=== PATIENT | female | born 1995 | race Caucasian/White ===

== ENCOUNTER 2024-05-31 15:13 | Outpatient (CLI) | payer BC, SELFPAY ==
--- OUTSIDE RECORDS SUMMARY | 2024-05-31 15:39 | XMS_ITS | Referral Summary ---
Author Organization [facility] Virtual Care Address [address] [place] [phone] Phone Care Team Providers Care Director Oncology Name Role Phone Van Garcia MD Primary Care Provider [phone] Allergies No known active allergies Medications No known medications Active Problems Problem Noted Date Diagnosed Date Acute pain of right knee 11/17/2023 Assessment & Plan (11/17/2023 11:24 AM CDT): Impression: Patient does complain of pain however is isolated to her right knee and foot. No symptoms of claudication. Patient also complains of symptoms suggestive of neurogenic pain. 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 Plan: Recommend patient to follow-up with primary care provider for worsening symptoms. Asymptomatic spider veins of both lower extremit ies 11/16/2023 Assessment & Plan (11/17/2023 11:22 AM CDT): Impression: Patient has spider veins to the right medial thigh. Patient underwent a venous reflux which did not show significant reflux to bilateral lower extremities. Plan: Recommend patient compression therapy as she is on her feet for prolong period of time. -patient to follow-up on an as-needed basis. Immunizations Name Administration Dates Next Due Influenza, Unspecified 04/29/2021(Deferr ed: Patient Refused),05/02/2020(Deferred: Patient Refused) Social History Tobacco Use Types Packs/Day Years Used Date Smoking Tobacco: Never Tobacco Cessation:Counseling Given: Not Answered AUDIT-C Answer Date Recorded Q1: How often do you have a drink containing alc ohol? Monthly or less 10/19/2023 Q2: How many drinks containi ng alcohol do you have on a typical day when you are drinking? 1 or 2 10/19/2023 Frequency of Binge Drinking Not on file 09/30 PHQ-2 Answer Date Recorded PHQ-2 Total Score (If total score is 3 or more points, staff should administer the PHQ-9) 0 10/19/2023 Comments Unknown Sex and Gender Information Value Date Recorded Sex Assigned at Not on file Legal Sex Female 10:02 AM VIDEO PRODUCTION SPECIALIST Gender Identity Female 03/10/2021 10:16 AM VIDEO PRODUCTION SPECIALIST Sexual Orientation Choose not to disclose 2020 10:16 AM VIDEO PRODUCTION SPECIALIST Last Filed Vital Signs Vital Sign Reading Time Taken Comments Blood Pressure 119/76 11/16/2023 10:08 AM CDT Pulse 66 11/16/2023 10:08 AM CDT Temperature 37.1 ??C (98.7 ??F) 10/19/2023 1:58 PM CD T Respiratory Rate 18 10/19/2023 1:58 PM CDT Oxygen Saturation 100% 11/16/2023 10:08 AM CDT Inhaled Oxygen Concentration - - Weight 61.1 kg (134 lb 9.6 oz) 10/19/2023 1:58 P M CDT Height 165.1 cm (5' 5 ) 10/19/2023 1:58 PM CDT Body Mass Index 22.4 10/19/2023 1:58 PM CDT Plan of Treatment Not on file Insurance [place] [address] [employer] [facility] H[facility]/PPO Address: [facility] [address] [place] [address] Care Teams Director Oncology Relationship Specialty Start Date End Date Van Garcia MD PCP - General Family Medicine 04/29/21
--- OUTSIDE RECORDS SUMMARY | 2024-05-31 15:39 | XMS_ITS | Clinical Summary ---
Author Organization [facility] Virtual Care Address [address] [place] [phone] Phone Care Team Providers Care Trimming Operator Name Role Phone Van Garcia MD Primary Care Provider [phone] Allergies No known active allergies Medications No [...] Unspecified 04/29/2021(Deferr ed: Patient Refused),05/02/2020(Deferred: Patient Refused) Family History Medical History Relation Name Comments No Known Problems Brother No Known Problems Father Hypertension Mother No Known Problems Sister Relation Name Status Comments Brother Alive Father Alive Mother Alive Sister Alive Social History Tobacco Use Types Packs/Day Years [...] on file Legal Sex Female 10:02 AM SCIENCE MANAGER Gender Identity Female 03/10/2021 10:16 AM SCIENCE MANAGER Sexual Orientation Choose not to disclose 2020 10:16 AM SCIENCE MANAGER Obstetrics History Last Filed Vital Signs Vital Sign Reading [...] 10/19/2023 1:58 PM CDT Plan of Treatment Health Maintenance Due Date Last Done Comments Cervical Cancer Screening 1996 Hepatitis C Screening 1996 DTaP/Tdap/Td Vaccine (1 - Tdap) 2007 Varicella Vaccines (1 of 2 - 13+ 2-dose series) 2009 Hepatitis B Screening 2014 Regular Well Visit/Exam 18-64 04/29/2022 04/29/2021 Depression Screening 10/18/2024 10/19/2023, 04/29/2021 HPV Vaccines Aged Out No longer eligi ble based on patient's age to complete this topic Influenza Vaccine Discontinued Pneumococcal vaccine <65 Aged Out No longer eligible based on patient's age to complete this topic Insurance [address] [place], [place] [address] [place] [address] [place] [address] [facility] HMO/PPO Address: [address] [address] [place] [address] Care Teams Trimming Operator Relationship Specialty Start Date End Date Van Garcia MD PCP - General Family Medicine 04/29/21
[2024-05-31 18:47] LABS: Hematocrit 36.8 % (37.0-47.0); Hemoglobin 12.4 g/dL (12.0-15.0); Mean Corpuscular HGB Conc 33.7 g/dl (32-36); Mean Corpuscular Hemoglobin 29.7 pg (26-34); Mean Corpuscular Volume 88.2 fl (80-100); Mean Platelet Volume 9.1 fl (7.4-10.4); Platelet Count Result 328 k/mm3 (150-375); Red Blood Count 4.17 M/mm3 (4.2-5.4); Red Cell Distribution Width 11.8 % (11.5-14.5); White Blood Count 10.5 K/mm3 (4.5-10.0)
[2024-05-31 19:43] LABS: HIV 1/2 Ab P24 Ag Result Negative (Negative)
[2024-05-31 19:52] LABS: Hepatitis B Surface Antigen Negative (Negative)
[2024-05-31 20:25] LABS: Rubella IgG Antibody > 110.0 IU/ML
[2024-06-01 13:22] LABS: Rapid Plasma Reagin Non-Reactive (NonReactive)
[2024-06-02 04:39] LABS: CMV IgG Antibody <0.60 U/mL; Varicella IgG Antibody 7.97 S/CO
== END 2024-05-31 15:14 | disposition home or self-care (01) ==
LOC: ANHGOSHLAB 15:14
PROVIDERS: PCP Pediatrics; Visit Provider Student in an Organized Health Care Education/Training Program
DX: N91.2 Amenorrhea, unspecified (principal); Z3A.08 8 weeks gestation of pregnancy
CPT/HCPCS: 36415; 84702; 85027; 86592; 86644; 86703; 86747; 86762; 86787; 86850; 86900; 86901; 87086; 87340; G0432

== ENCOUNTER 2024-05-31 15:28 | Outpatient (CLI) | payer BC, SELFPAY ==
--- NOTE | ~2024-05-31 | US_ITS ---
EXAMINATION: US OB <=14 wk fetus w TV DATE: 05/31/2024 16:02 SPLITTER MACHINE INDICATION: Dating COMPARISON: 02/01/2024 TECHNIQUE: Real-time transabdominal obstetric ultrasound. FINDINGS: 1 para 0 Last menstrual period is given as 04/07/2024 The uterus measures 10.1 x 8.4 x 5.1 cm. A gestational sac is identified within the uterus, to the right of midline. A pole is identified, with a crown-rump length that measures 1.73 cm, corresponding to an appro ximate gestational age of 8 weeks and 1 days. cardiac activity is identified at a rate of 169 bpm. Despite prolonged interrogation, the right ovary was not visualized. The left ovary measures 2.8 x 1.3 x 2.6 cm. Estimated date of delivery by ultrasound is 01/09/2025 IMPRESSION: Single intrauterine gestation with an approximate gestational age of 8 weeks and 1 days, with c ardiac activity identified. Reviewed, dictated and finalized at location A. TTER MACHINE IMPRESSION: Single intrauterine gestation with an approximate gestational age of 8 weeks an d 1 days, with cardiac activity identified.
== END 2024-05-31 15:29 | disposition home or self-care (01) ==
PROVIDERS: PCP Student in an Organized Health Care Education/Training Program; Visit Provider Student in an Organized Health Care Education/Training Program
DX: Z34.91 Encounter for supervision of normal pregnancy, unspecified, first trimester (principal); Z3A.08 8 weeks gestation of pregnancy
CPT/HCPCS: 76801; 76817

== ENCOUNTER 2024-11-03 08:10 | Outpatient (CLI) | payer OTHER, SELFPAY ==
--- OUTSIDE RECORDS SUMMARY | 2024-11-03 08:18 | XMS_ITS | Referral Summary ---
Author Organization [facility] Virtual Care Address [address] [place] [phone] Phone Care Team Providers Care Education Associate Name Role Phone Van Garcia MD Primary Care Provider [phone] Allergies No known active allergies Medications No [...] to follow-up on an as-needed basis. Immunizations Immunization Administration Dates Next Due Influenza, Unspecified 04/29/2021(Deferr [...] on file Legal Sex Female 10:02 AM PICKING TECH Gender Identity Female 03/10/2021 10:16 AM PICKING TECH Sexual Orientation Choose not to disclose 2020 10:16 AM PICKING TECH Last Filed Vital Signs Vital Sign Reading Time Taken Comments Blood Pressure 119/76 11/16/2023 10:08 AM CDT Pulse 66 11/16/2023 10:08 AM CDT Temperature 37.1 C (98.7 F) 10/19/2023 1:58 PM CDT Respiratory Rate 18 10/19/2023 1:58 PM CDT Oxygen Saturation 100% 11/16/2023 10:08 AM CDT Inhaled Oxygen Concentration - - Weight 61.1 kg (134 lb 9.6 oz) 10/19/2023 1:58 P M CDT Height 165.1 cm (5' 5) 10/19/2023 1:58 PM CDT Body Mass Index 22.4 10/19/2023 1:58 PM CDT Plan of Treatment Not on [place] [address] [employer] Care Teams Education Associate Relationship Specialty Start Date End Date Van Garcia MD PCP - General Family Medicine 04/29/21
--- OUTSIDE RECORDS SUMMARY | 2024-11-03 08:18 | XMS_ITS | Clinical Summary ---
Author Organization [facility] Virtual Care Address [address] [place] [phone] Phone Care Team Providers Care Medical Engineer Name Role Phone Van Garcia MD Primary Care Provider [phone] Allergies No known active allergies Medications No [...] on file Legal Sex Female 10:02 AM DYE CAN OPERATOR Gender Identity Female 03/10/2021 10:16 AM DYE CAN OPERATOR Sexual Orientation Choose not to disclose 2020 10:16 AM DYE CAN OPERATOR Obstetrics History Last Filed Vital Signs Vital [...] patient's age to complete this topic Insurance [address] [place], [place] [address] OPEN ACCESS [facility] Care Teams Medical Engineer Relationship Specialty Start Date End Date Van Garcia MD PCP - General Family Medicine 04/29/21
[2024-11-03 09:54] LABS: Hematocrit 33.9 % (37.0-47.0); Hemoglobin 11.2 g/dL (12.0-15.0); Immature Granulocyte Percent A 0.8 % (0-0.5); Lymphocytes Absolute Auto 1.08 K/mm3 (0.9-3.2); Mean Corpuscular HGB Conc 33.0 g/dl (32-36); Mean Corpuscular Hemoglobin 30.7 pg (26-34); Mean Corpuscular Volume 92.9 fl (80-100); Nucleated Red Blood Cells Absolute Auto 0.000 K/mm3 (0.0-0.012); Nucleated Red Blood Cells Perc 0.0 % (0.0-0.2); Platelet Count Result 249 k/mm3 (150-375); Red Blood Count 3.65 M/mm3 (4.2-5.4); White Blood Count 9.1 K/mm3 (4.5-10.0)
[2024-11-03 10:05] LABS: Glucose 1 Hour PP 50gm Dose 157 mg/dL
[2024-11-03 10:36] LABS: Syphilis IgG/IgM Antibody Non-Reactive (Nonreactive)
[2024-11-03 10:46] LABS: HIV 1/2 Ab P24 Ag Result Negative (Negative)
[2024-11-03] MEDS: RHO(D) IMMUNE GLOBULIN 300 MCG/2 ML SYRINGE IM (15:09)
== END 2024-11-03 08:11 | disposition home or self-care (01) ==
LOC: ANHLAB 08:17
PROVIDERS: PCP Family Medicine Sports Medicine; Visit Provider Obstetrics & Gynecology
DX: O36.0190 Maternal care for anti-D [Rh] antibodies, unspecified trimester, not applicable or unspecified (principal); Z3A.00 Weeks of gestation of pregnancy not specified; Z20.6 Contact with and (suspected) exposure to human immunodeficiency virus [HIV]
CPT/HCPCS: 36415; 82947; 85025; 85461; 86593; 86703; 86850; 86900; 86901; 90384; 96372; G0432; J2790

== ENCOUNTER 2025-01-14 12:34 | Inpatient (IN) | payer OTHER, SELFPAY ==
[2025-01-14] VITALS (161 sets, daily range): BP systolic 91–166; BP diastolic 56–125; PULSE 72–117; TEMP 36.4–37.1; O2SAT 94–100; BMI 33.7
--- NOTE | 2025-01-14 13:45 | LDADM ---
This patient, Zahira Crabtree, was admitted to Labor/Delivery/Recovery 109 on 01/14/25 at 12:34. Plans for labor, pain management and were discussed with patient. Patient/family oriented to hospital policies and general routines including ID bracelet, bed and alarms, visiting hours, pain management, procedures, bathroom and other care routines, personal items, smoking policy, room service/diet and guest tray routines, security routines, and visiting hours. Patient/Family are encouraged to report perceived risks to care and to ask questions if they do not understand what they are told or what they should do. See [employer]BIX for further documentation.
[2025-01-14 13:47] LABS: Hematocrit 35.4 % (37.0-47.0); Hemoglobin 12.0 g/dL (12.0-15.0); Immature Granulocyte Percent A 0.9 % (0-0.5); Lymphocytes Absolute Auto 1.07 K/mm3 (0.9-3.2); Mean Corpuscular HGB Conc 33.9 g/dl (32-36); Mean Corpuscular Hemoglobin 30.2 pg (26-34); Mean Corpuscular Volume 89.2 fl (80-100); Nucleated Red Blood Cells Absolute Auto 0.000 K/mm3 (0.0-0.012); Nucleated Red Blood Cells Perc 0.0 % (0.0-0.2); Platelet Count Result 228 k/mm3 (150-375); Red Blood Count 3.97 M/mm3 (4.2-5.4); White Blood Count 11.5 K/mm3 (4.5-10.0)
[2025-01-14 14:38] LABS: Syphilis IgG/IgM Antibody Non-Reactive (Nonreactive)
--- OUTSIDE RECORDS SUMMARY | 2025-01-14 15:21 | XMS_ITS | Clinical Summary ---
Author Organization [facility] Virtual Care Address [address] [place] [phone] Phone Care Team Providers Care Forest Examiner Name Role Phone Van Garcia MD Primary Care Provider [phone] Allergies No known active allergies Medications No [...] on file Legal Sex Female 10:02 AM MAILROOM PERSONNEL Gender Identity Female 03/10/2021 10:16 AM MAILROOM PERSONNEL Sexual Orientation Choose not to disclose 2020 10:16 AM MAILROOM PERSONNEL Obstetrics History Last Filed Vital Signs Vital [...] 2014 Regular Well Visit/Exam 18-64 04/29/2022 04/29/2021 HPV Vaccines (1 - 3-dose SCDM series) 2023 Depression Screening 10/18/2024 10/19/2023, 04/29/2021 Influenza Vaccine Discontinued Pneumococcal vaccine <65 Aged Out No longer eligible based on patient's age to complete this topic Insurance * Guarantor: Zahira Crabtreeina Account Type Relation to Patient Date of Phone Billing Address Personal/Family Self [address] [place] [phone] [place] [address] Care Teams Forest Examiner Relationship Specialty Start Date End Date Van Garcia MD PCP - General Family Medicine 04/29/21
[2025-01-14] MEDS: LACTATED RINGERS 1,000 ML 999 ML IV CONT ×2 (16:10→17:10)
[2025-01-14] MEDS: OXYTOCIN 30 UNITS/NS 500 ML 30 UNITS/500 ML BAG IV CONT (16:14)
--- NOTE | 2025-01-14 17:06 | P.PNAN_ITS ---
Anes - Eval Pre Procedure Procedure: labor pain managment Date/Time: 01/14/25 17:06 Surgeon: Corrie Preop Diagnosis: pain during labor Pre Op Diagnosis: labor Patient Data Age: 29 Gender: F Height: 1.65 m Weight: 91.82 kg Last Vital Signs Temp 98.2 F 01/14/25 16:39 Pulse 78 01/14/25 17:00 BP 143/92 H 01/14/25 17:00 Pulse Ox 98 01/14/25 17:04 O2 Del Method Room Air 01/14/25 13:35 Allergies Allergy/AdvReac Type Severity Reaction Status Date / Time No Known Allergies Allergy Verified 01/11/25 08:14 Home Medications ?Medication ?Instructions ?Recorded ?Confirmed ?Type docosahexaenoic acid 200 mg 200 mg PO DAILY 05/28/24 0 01/14/25 History capsule ( DHA) ferrous sulfate 325 mg (65 mg 325 mg PO DAILY 12/21/24 01/14/25 History iron) tablet Laboratory Tests 01/14/25 13:39 WBC 11.5 H K/mm3 (4.5-10.0) RBC 3.97 L M/mm3 (4.2-5.4) Hgb 12.0 g/dL (12.0-15.0) Hct 35.4 L % (37.0-47.0) MCV 89.2 fl (80-100) MCH 30.2 pg (26-34) MCHC 33.9 g/dl (32-36) RDW 12.8 % (11.5-14.5) Plt Count 228 k/mm3 (150-375) MPV 9.3 fl (7.4-10.4) Immature Gran % (Auto) 0.9 H % (0-0.5) Neut % (Auto) 81.8 H % (45.5-73.1) Lymph % (Auto) 9.3 L % (18.3-44.2) Williamson % (Auto) 7.2 % (2.6-8.5) Eos % (Auto) 0.5 % (0-4.4) Baso % (Auto) 0.3 % (0.2-1.2) Lymph # (Auto) 1.07 K/mm3 (0.9-3.2) Williamson # (Auto) 0.8 H K/mm3 (0.1-0.6) Eos # (Auto) 0.1 K/mm3 (0-0.3) Baso # (Auto) 0.0 K/mm3 (0.0-0.1) Abs Immat Gran (auto) 0.10 H K/mm3 (0.00-0.031) Absolute Neuts (auto) 9.4 H K/mm3 (1.3-6.7) Absolute Nucleated RBC 0.000 K/mm3 (0.0-0.012) Nucleated RBC % 0.0 % (0.0-0.2) Syphilis IgG/IgM Ab Non-reactive (Nonreactive) Blood Type B Negative Antibody Screen Positive Antibody Identification Anti-D Antigen Identification Not Reportable CYRUS, IgG Interpret Not Performed CYRUS, Poly Interpret Not Performed CYRUS, Complement Interp Not Performed Patient hx anesthesia problems: none Family hx anesthesia problems: none Results Review: All pre-operative results and documents have been reviewed as part of the pre- operative evaluation. [facility] Past Medical History Medical History ADHD Surgical History Surgical History H/O wisdom tooth extraction Family History Family History Mother Hypertension Grandparent Carcinoma of colon Alzheimer dementia Malignant neoplasm of prostate Social History Social History Smoking status: Never smoker Alcohol intake: never Substance use: never Substance use type: marijuana Do You Feel Safe in your Home?: Yes Lack of Transportation: No Lack of Food: Never True Current Housing: I Have Housing Concerned About Future Housing: No Difficulty Paying Gas/Electric Bills: No Difficulty Paying for Meds: No Currently Unemployed: No Education: Bachelor's Degree Difficulty w/ Childcare or Family Care: No Living arrangements: with family Additional living arrangements comments: Occupation/Education: occupation Additional occupation/education comments: caregiver Gender identity (if verbalized by the patient): Female Sexual Orientation (if Verbalized by the Patient): Straight or Heterosexual Spiritual care concerns: No Exam Day of Procedure 01/14/25 17:06
[2025-01-14] MEDS: LACTATED RINGERS 1,000 ML 125 ML IV CONT (20:05)
[2025-01-15] VITALS (305 sets, daily range): BP systolic 99–171; BP diastolic 53–105; PULSE 73–181; RESP 14–16; TEMP 36.6–39.4; O2SAT 80–100
[2025-01-15] MEDS: LACTATED RINGERS 1,000 ML 125 ML IV CONT ×3 (00:18→10:41)
[2025-01-15] MEDS: AMPICILLIN SODIUM 2 GM in SODIUM CHLORIDE 0.9% IV 100 ML 200 ML IVPB (06:22)
[2025-01-15] MEDS: CALCIUM CARBONATE (TUMS) 500 MG (200 MG ELEMENTAL) PO (07:47)
[2025-01-15] MEDS: ACETAMINOPHEN 500 MG TABLET 1000 MG (08:05)
[2025-01-15] MEDS: ONDANSETRON INJ 4 MG/2 ML VIAL IV PUSH (08:11)
[2025-01-15] MEDS: AMPICILLIN SODIUM 1 GM in SODIUM CHLORIDE 0.9% IV 50 ML 100 ML IVPB (10:51)
[2025-01-15] MEDS: fentaNYL CITRATE INJ (*CRX) 100 MCG/2 ML VIAL IV PUSH (14:21)
[2025-01-15] MEDS: OXYTOCIN 30 UNITS/NS 500 ML 30 UNITS/500 ML BAG 125 UNITS IV CONT (14:30)
--- NOTE | 2025-01-15 14:56 | PM.OBPRVD ---
OB - Vaginal Delivery Note Procedure Delivery date: 01/15/25 Intrapartal Events: Ineffetive Pushing/Maternal Exhaustion Induction method: None Delivery augmentation: Pitocin Delivery monitor: External FHT and Internal Uterine Route of delivery: forceps (low outlet forceps) Indication for instrumentation: maternal exhaustion (prolonged 2nd stage of labor) Episiotomy description: None Laceration Description: Perineal - 3rd Degree and Vaginal Delivery repair: vicryl Specimen: Yes (placenta) Quantitative Blood Loss (ml): 800 Anesthesia type: Epidural Disposition: Floor Complications: No immediate complications Narrative: Patient positioned in stirrups with the bed broken, dorsal lithotomy. Her perineum was prepped and draped in the usual fashion. The perineal body was normal length. Pelvis felt to be adequate. + 3 station. Min/mod caput. Phantom application of blades performed prior to placing left hand into vaginal sidewall. Left blade gently inserted along interlocking tower operator's hand to ensure no vag lacerations - advanced along the skull with the axillary prominence in a gentle fashion. In a similar fashion, the right blade was gently placed. Blade placement was then double checked to ensure adequate placement. The forceps shank articulated well in the midline. A fingerbreadth below the suture on either side was noted.? With the next contraction, gentle downward pressure was applied in sync with the contraction / pushing effort. Adequate descent was noted. There were a total of 2 pulls, and the forceps were disarticulated as the head delivered. A nuchal cord x 1 was noted and easily reduced. The remainder of the was delivered atraumatically. A segment of cord taken for gases and sample collected as above. A third degree midline perineal laceration and a left vaginal sulcal laceration were noted. The placenta delivered spontaneously and found to be intact. Routine repair of the 3nd degree laceration with 3-0 vicryl and 2-0 vicryl.?The sulcal laceration was re-approximated with a series of interrupted 2-0 vicryl. All sponge, lap, and needle counts correct x 2. Patient taken out of lithotomy position and tolerated procedure very well.? NICU present for delivery.? Perineal care & instructions reinforced.? Baby Date of : 01/15/25 Time of : 14:13 Gestational Age by Date: 39 Infant gender: Male Weight (pounds): 8 Weight (ounces): 7 presentation: vertex position: Left Occiput Transverse Placenta delivery description: Spontaneous Cord Vessel Description: 3 Vessels and Nuchal Cord score one minute: 7 score five minutes: 9
--- NOTE | 2025-01-15 15:40 | PC.NURSE ---
Nursery RN requested assistance at first feeding. They had attempted once without success. Baby is alert and roots when placed in cradle hold at the left breast. Mom is exhausted and not able to help support baby or her breast much. She has large, soft breasts with low profile nipples. Baby is able to latch with breast compressed close behind the nipple. Baby had one instance of suckling several times but during the majority of our attempt he would hold the nipple in his mouth but not suck. We tried for about 10 minutes and then the patient needed to take some medication and eat. Baby was unable to achieve a feeding at this time. Reviewed with patient that we will try again when baby is ready and that she has the options of pumping and/or supplementing if desired. Primary RN updated.
[2025-01-15] MEDS: ACETAMINOPHEN 325 MG TABLET 650 MG PO ×2 (15:41→21:29)
[2025-01-15] MEDS: IBUPROFEN 600 MG TABLET PO ×2 (15:44→21:29)
[2025-01-15] MEDS: WITCH HAZEL 40 PADS 1 PAD TOPICAL (16:04)
[2025-01-15] MEDS: BENZOCAINE 20% AER SPR (*SP) 56 GM CAN 1 SPRAY TOPICAL (16:04)
[2025-01-15] MEDS: oxyCODONE/ACETAMINOPHEN (*CRX) 5-325 MG TABLET 1 TABLET PO (18:32)
[2025-01-15] MEDS: SODIUM CHLORIDE 0.9% IV 500 ML (23:10)
--- NOTE | 2025-01-15 23:27 | PC.NURSE ---
9790- This RN spoke with Dr. Roberto to inform her that pt feeling faint/lightheaded when ambulating to toilet for void. 500ml NS bolus x 1 per IV now. Continue to monitor pt.
[2025-01-16] VITALS (10 sets, daily range): BP systolic 102–125; BP diastolic 59–75; PULSE 80–98; RESP 14–18; TEMP 36.2–36.9; O2SAT 97–100
[2025-01-16] MEDS: oxyCODONE/ACETAMINOPHEN (*CRX) 5-325 MG TABLET 1 TABLET PO ×4 (00:28→20:11)
[2025-01-16] MEDS: ACETAMINOPHEN 325 MG TABLET 650 MG PO ×4 (03:16→23:03)
[2025-01-16] MEDS: IBUPROFEN 600 MG TABLET PO ×4 (03:17→23:03)
[2025-01-16 05:55] LABS: Hematocrit 23.7 % (37.0-47.0); Hemoglobin 7.7 g/dL (12.0-15.0)
--- NOTE | 2025-01-16 07:37 | P.PNOB_ITS ---
OB - PN: Subj Subjective Date/time seen: 01/16/25 07:37 Patient comments: no complaints, pain well controlled and tolerating diet [place] feeding status: exclusively breast feeding Narrative: patient doing well this AM. No complaints. Pain is tolerable with oxycodone. She reports minimal bleeding. She is ambulating and voiding without difficulty. She is tolerating PO. She denies N/V, fever, chills. OB - PN: Obj Data Labs 01/16/25 03:55 Labs: Laboratory Results - last 24 hr 01/16/25 03:55 Hgb 7.7 L D Hct 23.7 L OB - PN A/P Plan day: 1 Plan: routine care Comments: patient doing well H/H 7.11/21, pt had a near syncopal episode last night going to the bathroom. recommended blood transfusion. will transfuse 2 u pRBC pt desires circumcision. Risks, benefits, alternatives discussed. will continue oxycodone, tylenol, motrin for pain control will add stool softeners continue routine care Time Spent With Patient Time: Total time spent is greater than 50% in coordination of care (as documented) at patient's floor/unit and/or counseling patient: Time with patient: less than 15 minutes Review of Systems 2 Review of Systems: All systems reviewed & are unremarkable except as noted in HPI and below Exam 2 Const: General: comfortable and no acute distress Resp: Effort & Inspection: normal respiratory effort Cardio: Rate: regular rate GI: GI Palp: Yes Soft to palpation and No Tenderness to palpation present (GI) Auscultation: normal bowel sounds Other: fundus firm and below umbilicus. Psych: Affect: normal affect
[2025-01-16] MEDS: DOCUSATE SODIUM 100 MG CAPSULE PO (09:25)
[2025-01-16] MEDS: MULTIVIT/MIN/PREN/FOL AC/IRON TABLET 1 TAB PO (09:26)
[2025-01-16] MEDS: LANOLIN (LANSINOH) 7.5 GM CREAM 1 APPLIC TOPICAL (09:28)
--- NOTE | 2025-01-16 10:26 | PC.NURSE ---
Introductions were made, communication board updated. Discussed with patient her experience so far. Patient expressed that her nipples are cracked and were bleeding overnight. Night RN was able to provide patient with lanolin nipple cream, cooling gel pads and a nipple shield to assist with pain and . Patient was properly educated by night RN on the use of all tools provided to her. Patient states that her nipples are no longer bleeding. Patient encouraged to call this RN for next feeding to assist with latch. Primary RN updated.
[2025-01-16] MEDS: SODIUM CHLORIDE 0.9% IV 250 ML 30 ML IV CONT (13:43)
[2025-01-16] MEDS: RHO(D) IMMUNE GLOBULIN 300 MCG/2 ML SYRINGE IM ×2 (13:44→13:52)
--- NOTE | 2025-01-16 14:04 | WPDANLDPN2 ---
Anes-Prog Note L&D Date/Time: 01/16/25 14:04 Comfortable throughout: labor and delivery Neuraxial method: epidural Epidural/Spinal procedure site: clean & non-tender Neuro status: Neuro function grossly intact. Cardiovascular status: normal Respiratory status: normal Airway patency: baseline Mental status: baseline Post-Op hydration status: normal Vital Signs: Last Vital Signs Temp 36.4 C L 01/16/25 13:53 Pulse 98 01/16/25 13:53 Resp 18 01/16/25 13:53 BP 123/75 01/16/25 13:53 Pulse Ox 98 01/16/25 13:53 O2 Del Method Room Air 01/14/25 13:35 Pain score (VAS): 0 I/O: Intake & Output 01/15/25 01/16/25 01/16/25 23:59 07:59 15:59 Intake Total 200 309 Output Total 710 Balance -510 309 Patient feedback: Patient satisfied with anesthetic care.
--- NOTE | 2025-01-16 16:52 | PC.NURSE ---
1640. Breast pump provided due to moms sore nipples & prefers to take a break from to let her nipples rest. Instructions given on cleaning, care, usage, that there should be no pain, pumping schedule for milk production, collection, and storage of human milk. Patient was assessed for correct placement, flange size, to pump for comfort and nipple stretching/stimulation for adequate milk production every 3 hours (8 times in 24 hours) 1-2 times at night. Parents are encouraged to record the pumping schedule on the feeding sheet.?Mother voiced understanding of the education shared along with mom/baby guide and the pump measurement, flange fit handout for additional resource information. Reported to the Primary RN.
[2025-01-16] MEDS: SENNA/DOCUSATE SODIUM TABLET 1 TAB PO (20:12)
[2025-01-17] MEDS: oxyCODONE/ACETAMINOPHEN (*CRX) 5-325 MG TABLET 1 TABLET PO ×2 (02:16→09:34)
[2025-01-17 07:40] VITALS: BP 120/76; PULSE 78; RESP 18; TEMP 37.2; O2SAT 98
--- NOTE | 2025-01-17 08:04 | PM.OBDSVD ---
DS: Admitting Diagnosis Discharge Date 01/17/25 Admitting Diagnosis intrauterine at term DS: Discharge Diagnosis Discharge Diagnosis (1) Normal vaginal delivery: Code(s): O80 - Encounter for full-term uncomplicated delivery Status: Acute OB - DS: Summary OB Procedures : None OB Procedures Intrapartum: Spontaneous Vag Delivery and Forceps Low OB Procedures: : Transfusion Peripartum Data Laceration Description: Perineal - 3rd Degree and Vaginal Episiotomy description: None complications: transfusion Status at Discharge Functional status at discharge: independent ambulation Overall status at discharge: patient is back to baseline Time Spent with Patient Time attestation: Total time spent providing and/or coordinating discharge services: Time spent: Less than 30 minutes Exam Const: General: comfortable and no acute distress Resp: Effort & Inspection: normal respiratory effort Auscultation: clear to auscultation bilaterally Cardio: Rate: regular rate GI: GI Palp: Yes Soft to palpation Auscultation: normal bowel sounds Other: Fundus firm below umbilicus Psych: Appearance: grossly normal Mental Status: mental status grossly normal Affect: normal affect DS: Data Data Completed and Pending Labs on day of discharge: Labs from last 24 hours 01/16/25 01/14/25 08:42 13:39 Blood Type B Negative B Negative Antibody Screen TNP Positive Antibody Identification Passive Due to RH Imm Glob Screen Positive H Baby's Blood Type O pos Baby's CYRUS Positive KB Hemoglobin Positive Doses of RhIg Required 3 Crossmatch See Detail Discharge Plan Discharge Discharging Clinician: Luis Foster Patient Disposition: Home Activity: as tolerated and pelvic rest Diet: regular Patient Instructions: Antibiotic Form, Vaginal Delivery (DC) Patient Language: Portuguese Stand Alone Forms: General Discharge Information Follow-up/Referrals: Luis Foster MD [Physician, ELECTRICAL TECHNICIAN INSTRUCTOR] - 1 Week Referral Note: vaginal repair exam Discharge Medications: New oxycodone-acetaminophen 5-325 mg tablet 1 tablet PO Q6H PRN (Reason: pain) Qty: 28 0RF ibuprofen 600 mg tablet 600 mg PO Q6H PRN (Reason: pain) Qty: 30 0RF Continued ferrous sulfate 325 mg (65 mg iron) tablet 325 mg PO DAILY DHA 200 mg capsule 200 mg PO DAILY Date of admission: 01/14/25 12:34 Primary Care Provider: PHYSICIAN,GYMNASIUM TEACHER Admitting Provider: Matteo Denton Attending physician on admission: Luis Foster Condition: Stable
[2025-01-17] MEDS: IBUPROFEN 600 MG TABLET PO (09:33)
[2025-01-17] MEDS: ACETAMINOPHEN 325 MG TABLET 650 MG PO (09:33)
[2025-01-17] MEDS: MULTIVIT/MIN/PREN/FOL AC/IRON TABLET 1 TAB PO (09:33)
[2025-01-17] MEDS: DIBUCAINE 1% OINTMENT 30 GM TUBE 1 APPLIC TOPICAL (09:33)
[2025-01-18 09:02] VITALS: BP 134/81; PULSE 88; RESP 18; TEMP 36.7; O2SAT 100
== END 2025-01-17 15:28 | disposition home or self-care (01) | DRG 768 ==
LOC: ANHLDR 01-15 07:58 → ANHOB2 01-15 20:04
PROVIDERS: Admitting Provider Obstetrics & Gynecology; Visit Provider Student in an Organized Health Care Education/Training Program
DX: O42.02 Full-term premature rupture of membranes, onset of labor within 24 hours of rupture (principal); Z37.0 Single live birth; O41.1230 Chorioamnionitis, third trimester, not applicable or unspecified; O70.20 Third degree perineal laceration during delivery, unspecified; Z3A.40 40 weeks gestation of pregnancy; O69.81X0 Labor and delivery complicated by cord around neck, without compression, not applicable or unspecified; O77.0 Labor and delivery complicated by meconium in amniotic fluid; O75.81 Maternal exhaustion complicating labor and delivery
CPT/HCPCS: 36415; 36430; 85014; 85018; 85025; 85460; 85461; 86593; 86850; 86880; 86900; 86901; 86902; 86920; 90384; A9270; J0290; J1200; J2405; J2590; J2790; J2795; J3010; J7040; J7050; J7120; P9016